=== PATIENT | male | born 1950 | race Caucasian/White ===

== ENCOUNTER 2019-04-05 13:18 | Emergency (ER) | payer MEDICARE ==
[~2019-04-05] VITALS: Ht 177.8 cm; Wt 70.3 kg
--- NOTE | 2019-04-05 13:47 | NUR ---
[facility] PT ARRIVED TO TRIAGE AMBULATORY WITH C/O UNABLE TO VOID SINCE 0500. PT ASSESSED AND TAKEN TO ER 3. PT WAS ABLE TO GIVE 10CC OF URINE FOR SAMPLE. REPORT GIVEN TO Alan SOLANO RN.
[2019-04-05 14:05] VITALS: BP 151/78
--- NOTE | 2019-04-05 14:23 | ER.PDOC ---
General Chief Complaint: Male Stated Complaint: MALE Time seen by MD: 14:22 Source: patient Exam Limitations: no limitations History of Present Illness Initial Comments HESITANCY, FREQUENCY, DRIBBLING Timing/Duration: intermittent Severity/Quality: mild Location: suprapubic Associated Symptoms: Dysuria, Urgency, Frequency, Hesitancy, Small amounts, Retention Sexual History: Non-contributory Prior symptoms/Treatment: Similar symptoms previous Past Medical History Medical History: heart attack Social History Alcohol Use: occassionally Drug Use: none Reviewed Nursing Reviewed: Vital Signs, Abn. 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 (04/05/19 14:19) Urinalysis (04/05/19 14:19) Place Mtz Catheter (04/05/19 14:19) Vital Signs Date Time Temp Pulse Resp B/P (MAP) Pulse Ox O2 Delivery O2 Flow Rate FiO2 04/05/19 14:05 97.7 68 18 04/05/19 14:05 97.7 68 18 151/78 (102) 96 Room Air 04/05/19 13:34 97.8 58 18 96 Laboratory Tests Test 04/05/19 14:19 04/05/19 14:26 Urine Collection Type VOID Urine Color YELLOW (YELLOW) Urine Appearance SLIGHTLY HAZY (CLEAR) H Urine Bilirubin NEGATIVE MG/DL (NEGATIVE) Urine Ketones NEGATIVE (NEGATIVE) Urine Specific [place] 1.015 (1.005-1.035) Urine pH 6 (5.0-6.0) Urine Protein 15 mg/dL (NEGATIVE) H Urine Urobilinogen NORMAL (NEGATIVE) Urine Nitrate NEGATIVE (NEGATAIVE) Urine Leukocyte Esterase 500/uL 2+ (NEGATIVE) Urine Blood 250 4+ (NEGATIVE) H Urine RBC 10-25 RBC/HPF (NONE SEEN) H Urine WBC 2-5 WBC/HPF (0-2) Urine Squamous Epithelial Cells RARE #/HPF (FEW) Urine Bacteria RARE (NONE SEEN) Urine Glucose NORMAL (NEGATIVE) White Blood Count 13.8 10^3/uL (4.5-11.0) H Red Blood Count 5.16 10^6/uL (4.50-5.90) Hemoglobin 16.1 g/dL (13.9-16.3) Hematocrit 46.7 % (37.0-53.0) Mean Corpuscular Volume 90.5 fL (78-100) Mean Corpuscular Hemoglobin 31.2 pg (26-34) Mean Corpuscular Hemoglobin Concent 34.5 g/dL (33-37) Red Cell Distribution Width 13.1 % (11.5-14.5) Platelet Count 169 10^3/uL (150-400) Mean Platelet Volume 11.0 fL (7.8-11.0) Neutrophils (%) (Auto) 87.6 % (41.0-85.0) H Lymphocytes (%) (Auto) 5.9 % (24.0-44.0) *L Monocytes (%) (Auto) 5.9 % (5.0-12.0) Neutrophils # (Auto) 12.1 10^3/uL (1.8-7.7) H Lymphocytes # (Auto) 0.8 10^3/uL (1.0-4.8) L Monocytes # (Auto) 0.8 10^3/uL (0.3-0.8) Absolute Immature Granulocyte (auto 0.05 10^3 u/L (0-2) Immature Granulocytes % 0.40 % (0.00-0.50) Eosinophils % 0.1 % (0.0-5.0) Basophils % 0.1 % (0.0-0.2) Basophils # 0.0 10^3/uL (0.0-0.1) Eosinophil Count 0.0 10^3/uL (0.0-0.2) Prothrombin Time 9.9 SEC (9.4-11.5) Prothrombin Time INR (Non-Therap) 1.0 Activated Partial Thromboplast Time 21.8 SEC (24.67-30.72) Sodium Level 142 mmol/L (132-145) Potassium Level 3.9 mmol/L (3.6-5.2) Chloride Level 107.0 mmol/L (96-109) Carbon Dioxide Level 24.4 mmol/L (20.0-32) Anion Gap 14.5 Blood Urea Nitrogen 15 mg/dL (7-18) Creatinine 1.12 mg/dL (0.59-1.40) Estimated GFR () 78.4 (>/=60) BUN/Creatinine Ratio 13.0 Glucose Level 164 mg/dL (70-110) H Calcium Level 9.3 mg/dL (8.4-10.5) Total Bilirubin 0.6 mg/dL (0.2-1.0) Aspartate Amino Transferase (AST) 18 U/L (0-35) Alanine Aminotransferase (ALT) 23 U/L (12-78) Alkaline Phosphatase 83 U/L (50-136) Total Protein 7.4 g/dL (6.4-8.2) Albumin 4.2 g/dL (3.4-5.0) Globulin 3.2 Amylase Level 57 U/L (25-115) Lipase 112 U/L (114-286) L Helicobacter pylori Screen NEGATIVE (NEGATIVE) Departure Time of Disposition: 16:00 Disposition: 01 HOME, SELF-CARE Impression: Primary Impression: Retention of urine Condition: Improved Referrals: PCP,UNKNOWN (PCP) PRIMARY CARE PROVIDER Duration or Time Spent with Pa: 25M HÉCTOR CRANDALL MD Apr 05, 2019 14:23
[2019-04-05 14:33] LABS: BASOPHIL % 0.1 % (0.0-0.2); EOSINOPHIL % 0.1 % (0.0-5.0); HEMOGLOBIN 16.1 g/dL (13.9-16.3); LYMPHOCYTES # 0.8 10^3/uL (1.0-4.8); LYMPHOCYTES % 5.9 % (24.0-44.0); MEAN CELL HGB 31.2 pg (26-34); MEAN CELL HGB CONCENTRATION 34.5 g/dL (33-37); MEAN CORP VOLUME 90.5 fL (78-100); MONOCYTES # 0.8 10^3/uL (0.3-0.8); MONOCYTES % 5.9 % (5.0-12.0); NEUTROPHIL # 12.1 10^3/uL (1.8-7.7); NEUTROPHILS % 87.6 % (41.0-85.0); RED CELL DISTRIBUTION WIDTH 13.1 % (11.5-14.5); WHITE BLOOD CELL 13.8 10^3/uL (4.5-11.0)
[2019-04-05 14:35] LABS: BILIRUBIN,URINE NEGATIVE (NEGATIVE); UROBILINOGEN,URINE NORMAL (NEGATIVE)
--- NOTE | 2019-04-05 14:46 | NUR ---
CRENSHAW INSERTION AT PT. BEDSIDE TO INSERT 16 FR CRENSHAW USING STERILE TECHNIQUE. PROCEDURE PAINFUL TO PATIENT D/T BPH BUT PT. TOLERATED WELL. 400 CC CLEAR YELLOW URINE RETURN UPON CRENSHAW INSERTION
[2019-04-05 14:54] LABS: APPEARANCE,URINE SLIGHTLY HAZY (CLEAR); UA COLOR YELLOW (YELLOW)
[2019-04-05 14:57] LABS: CALCIUM 9.3 mg/dL (8.4-10.5); CARBON DIOXIDE 24.4 mmol/L (20.0-32)
[2019-04-05 17:51] LABS: BAND NEUTROPHILS 1 % (2-6); LYMPHOCYTE 5 % (25-36); MONOCYTE 5 % (3-9); SEGMENTED NEUTROPHILS 87 % (31-76)
== END 2019-04-05 15:55 | disposition home or self-care (01) ==
LOC: ER 13:18
DX: R33.9 Retention of urine, unspecified (principal); R39.11 Hesitancy of micturition; R35.0 Frequency of micturition; I25.2 Old myocardial infarction; R79.1 Abnormal coagulation profile
CPT/HCPCS: 36415; 51702; 80053; 81000; 82150; 83690; 85025; 85610; 85730; 86677; 87086; 99284